=== PATIENT | male | born 1990 | race Caucasian/White ===

== ENCOUNTER 2022-01-28 15:58 | Emergency (ER) | payer OTHER ==
[2022-01-28 16:33] VITALS: TEMP 98.2
--- NOTE | 2022-01-28 17:17 | XR ---
EXAMINATION TYPE: XR hand complete RT, XR wrist complete RT DATE OF EXAM: 01/28/2022 5:03 PM INDICATION: Patient age:Male; 32 years old; Reason for study: pain; PHH. COMPARISON: None TECHNIQUE: Frontal, lateral and oblique views of the right hand were obtained. Frontal lateral oblique and navicular views of the right wrist. FINDINGS: Normal alignment of the visualized joints. No acute osseous pathology is identified. No e vidence of soft tissue swelling. IMPRESSION: No acute osseous pathology.
--- NOTE | 2022-01-28 17:20 | ED ---
General Adult HPI - General Chief complaint: Extremity Injury, Upper Stated complaint: [facility]-hand injury Time Seen by Provider: 01/28/22 16:44 Source: patient Mode of arrival: ambulatory Limitations: no limitations - History of Present Illness Initial comments: Patient is a 32-year-old male who presents to the emergency department with a chief complaint of right hand bruise. Patient states he was using a crowbar to lift something at work and started using a hammer to push the crowbar hit his hand on it. Injury occurred this afternoon. Patient reports mild pain but states he uses his hands often when working so wanted to make sure there was no injury. Has not taken any pain medication. Denies numbness and tingling. - Related Data Previous Rx's Medication Instructions Recorded Ibuprofen [Motrin] 800 mg PO Q8H PRN 7 Days #21 tab 01/28/22 Allergies Allergy/AdvReac Type Severity Reaction Status Date / Time No Known Allergies Allergy Verified 01/28/22 16:33 Review of Systems ROS Statement: Those systems with pertinent positive or pertinent negative responses have been documented in the HPI. ROS Other: All systems not noted in ROS Statement are negative. Past Medical History Past Medical History: No Reported History History of Any Multi-Drug Resistant Organisms: None Reported Past Surgical History: No Surgical Hx Reported Past Psychological History: No Psychological Hx Reported Smoking Status: Current every day smoker, Vaper Past Alcohol Use History: Occasional Past Drug Use History: Marijuana General Exam Limitations: no limitations General appearance: alert Head exam: Present: atraumatic, normocephalic, normal inspection Respiratory exam: Present: normal lung sounds bilaterally. Absent: respiratory distress, wheezes, rales, rhonchi, stridor Cardiovascular Exam: Present: regular rate, normal rhythm, normal heart sounds. Absent: systolic murmur, diastolic murmur, rubs, gallop, clicks Extremities exam: Present: other (contusion to right lateral palm and right lateral anterior wrist. No pain with palpation. neurovascularly intact. Full range of motion.) Back exam: Present: normal inspection Neurological exam: Present: alert, oriented X3, CN II-XII intact Psychiatric exam: Present: normal affect, normal mood Skin exam: Present: warm, dry, intact, normal color. Absent: rash Course Vital Signs 01/28/22 01/28/22 16:31 17:40 Temperature 98.2 F Pulse Rate 85 84 Respiratory 16 18 Rate Blood Pressure 122/82 122/80 O2 Sat by Pulse 100 96 Oximetry Medical Decision Making - Medical Decision Making This is a 32-year-old male who presents with right hand injury. No anatomical snuffbox tenderness. Right hand and wrist x-ray are negative for acute process. Patient will be discharged with RICE instructions. Dr. Cervantes is my attending. Disposition Clinical Impression: Right hand pain, Contusion Disposition: HOME SELF-CARE Condition: Good Instructions (If sedation given, give patient instructions): Contusion in Adults (ED), P.R.I.C.E. Treatment (ED) Additional Instructions: Take Motrin as directed. Rest, ice, and elevate the right hand for the next 48 hours. Follow-up with [email or web address] services. Return to the emergency department if you experience new, concerning, or worsening symptoms. Prescriptions: Ibuprofen [Motrin] 800 mg PO Q8H PRN 7 Days #21 tab PRN Reason: Pain Is patient prescribed a controlled substance at d/c from ED?: No Referrals: None,Stated [Primary Care Provider] - 1-2 days Time of Disposition: 17:20
[2022-01-28 17:41] VITALS: BP 122/80; PULSE 84; RESP 18
== END 2022-01-28 17:41 | disposition home or self-care (01) ==
LOC: EC 15:58
DX: S60.221A Contusion of right hand, initial encounter (principal); F17.290 Nicotine dependence, other tobacco product, uncomplicated; X50.0XXA Overexertion from strenuous movement or load, initial encounter; Y92.69 Other specified industrial and construction area as the place of occurrence of the external cause; Y99.0 Civilian activity done for income or pay
CPT/HCPCS: 99283

== ENCOUNTER 2022-02-18 11:29 | Emergency (ER) | payer BC ==
[2022-02-18 11:38] VITALS: BP 132/90; PULSE 76; RESP 16; TEMP 98.1
--- NOTE | 2022-02-18 12:08 | ED ---
Eye Problem HPI - General Chief complaint: Eye Problems Stated complaint: lt eye pain/vision trouble Time Seen by Provider: 02/18/22 11:48 Source: patient, RN notes reviewed, old records reviewed Mode of arrival: ambulatory Limitations: no limitations - History of Present Illness Initial comments: This a 32-year-old male presents emergency Department chief complaint of left eye vision loss. Patient states that he woke up to symptoms on Wednesday. He states that he has central vision loss with peripheral vision that that is blurry. He states that he has no acute pain. Denies any trauma. Denies any headache or dizziness. states he assumes symptoms would resolve but have not resolved. 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 - Related Data Previous Rx's Medication Instructions Recorded Ibuprofen [Motrin] 800 mg PO Q8H PRN 7 Days #21 tab 01/28/22 Allergies Allergy/AdvReac Type Severity Reaction Status Date / Time No Known Allergies Allergy Verified 01/28/22 16:33 Review of Systems ROS Statement: Those systems with pertinent positive or pertinent negative responses have been documented in the HPI. ROS Other: All systems not noted in ROS Statement are negative. Past Medical History Past Medical History: No Reported History History of Any Multi-Drug Resistant Organisms: None Reported Past Surgical History: No Surgical Hx Reported Past Psychological History: No Psychological Hx Reported Smoking Status: Current every day smoker, Vaper Past Alcohol Use History: Occasional Past Drug Use History: Marijuana General Exam Limitations: no limitations General appearance: alert, in no apparent distress Head exam: Present: atraumatic, normocephalic, normal inspection Eye exam: Present: normal appearance, PERRL, EOMI. Absent: scleral icterus, conjunctival injection, periorbital swelling ENT exam: Present: normal exam, normal oropharynx, mucous membranes moist Neck exam: Present: normal inspection, full ROM. Absent: tenderness, meningismus, lymphadenopathy Respiratory exam: Present: normal lung sounds bilaterally. Absent: respiratory distress, wheezes, rales, rhonchi, stridor Cardiovascular Exam: Present: regular rate, normal rhythm, normal heart sounds. Absent: systolic murmur, diastolic murmur, rubs, gallop, clicks Neurological exam: Present: alert, oriented X3, CN II-XII intact, reflexes normal. Absent: motor sensory deficit Skin exam: Present: warm, dry, intact, normal color. Absent: rash Course Vital Signs 02/18/22 11:35 Temperature 98.1 F Pulse Rate 76 Respiratory 16 Rate Blood Pressure 132/90 O2 Sat by Pulse 100 Oximetry Medical Decision Making - Medical Decision Making 32-year-old presented from for left eye vision loss. 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 Patient will be discharged to his office for further evaluation. Disposition Clinical Impression: Vision loss, left eye Disposition: HOME SELF-CARE Condition: Stable Is patient prescribed a controlled substance at d/c from ED?: No Referrals: Jose G Hubbard DO [Primary Care Provider] - 1-2 days Kaden Head MD [STAFF PHYSICIAN] - 1-2 days Time of Disposition: 12:24
== END 2022-02-18 12:30 | disposition home or self-care (01) ==
LOC: EC 11:29
DX: H54.7 Unspecified visual loss (principal); F17.290 Nicotine dependence, other tobacco product, uncomplicated
CPT/HCPCS: 99283

== ENCOUNTER → 2022-03-21 | Outpatient (CLI) | payer BC ==
--- NOTE | 2022-03-22 03:59 | MR ---
EXAMINATION TYPE: MR brain wo/w con DATE OF EXAM: 03/21/2022 COMPARISON: None HISTORY: Left eye vision loss. CONTRAST: Standard multiplanar, multisequence MRI departmental protocol images were obtained without contrast a nd with 6 mL intravenous Gadavist gadolinium contrast. Ventricles have normal size. There is no mass effect or midline shift. No sign of intracranial hemorr elias. There is a 1.8 cm area of increased signal in the white matter right posterior temporal lobe ad jacent to the lateral ventricle on the T2 and FLAIR images. This also has increased signal on the dif fusion images. The corpus callosum is intact. Sella turcica is intact. The brainstem is intact. No evidence of a fabiana lar mass. No evidence of orbital mass. Optic chiasm appears normal. The contrast images show normal enhancement of the venous sinuses. No pathologic enhancement. IMPRESSION: There is solitary large area of increased signal in the right posterior temporal lobe white matter th at could be focus of acute demyelinating disease or less likely lacunar infarct. No hemorrhage.
== END | disposition home or self-care (01) ==
LOC: RADMRIMAIN 13:48
PROVIDERS: ATTEND Ophthalmology
DX: H46.02 Optic papillitis, left eye (principal); H47.11 Papilledema associated with increased intracranial pressure
CPT/HCPCS: 70553; A9585